=== PATIENT | female | born 1965 | race Caucasian/White ===

== ENCOUNTER 2024-09-27 09:13 | Observation (INO) ==
--- NOTE | 2024-09-27 09:51 | Emergency Department Note ---
HPI - Nausea/Vomiting/Diarrhea General Chief complaint: Abdominal Pain Stated complaint: General Illness Time Seen by Provider: 09/27/24 09:17 Source: patient and EMS Mode of arrival: ambulance Limitations: no limitations History of Present Illness HPI Narrative: 59-year-old female presents to ER with complaint of 4-day onset of diarrhea with abdominal pain, patient reports that she believes she ate something bad on Thursday and has had progressive diarrhea ever since and has continued to have it up to today. Patient has had another bowel movement after arrival in ER. MD elicited complaint: Reports diarrhea and abdominal pain Pertinent past history: Reports other (Hypertension, chronic back pain, rheumatoid arthritis) Onset (ago): day(s) (4) Description of diarrhea: Reports watery Associated nausea: Yes Associated abdominal pain: Yes Location of pain: Reports diffuse Radiation: Reports does not radiate Pain consistency: Reports constant Severity: moderate Quality: Reports cramping and aching Exacerbating factors: Reports eating, bowel movement, movement and exertion Relieving factors: Reports rest Context: Reports possible food poisoning Associated symptoms: Reports myalgias, loss of appetite, nausea/vomiting, weakness, fecal incontinence, anxiety and fatigue Treatment prior to arrival: Reports none Related Data Allergies Allergy/AdvReac Type Severity Reaction Status Date / Time No Known Drug Allergies Allergy Verified 09/27/24 09:21 Review of Systems Status of ROS 10 or more systems reviewed and unremark able except as noted in history and below Constitutional Reports: fatigue Gastrointestinal Reports: abdominal pain, nausea and diarrhea Musculoskeletal Reports: back pain Psychiatric Reports: anxiety Endocrine Reports: fatigue PFSH PFS Medical History (Updated 09/27/24 @ 09:35 by Diane Gamez RN) Hypertension Back pain Rheumatoid arthritis Surgical History (Updated 09/27/24 @ 09:35 by Diane Gamez RN) History of shoulder surgery History of tubal ligation Social History Smoking status: current every day smoker Within the past year, how often did you have a drink containing alcohol: monthly or less Non-prescribed substance use: denies use Feel stressed/tense/nervous/anxious/difficulty sleeping: rather much Life stressors: other (none) Life stressor details: Current medical condition Due to disability, difficulty making decisions: No Exam Constitutional: normal general appearance, distress noted (moderate), abnormal body habitus (underweight), no limitations and alert Vital Signs - 24 hr 09/27/24 09:13 09/27/24 10:00 Temperature 97.1 F L Pulse Rate 92 H 82 Respiratory Rate 20 20 Blood Pressure 143/105 141/93 Pulse Oximetry 98 98 Oxygen Delivery Me thod Room Air Room Air HENMT: normocephalic, head/scalp atraumatic, hearing grossly normal bilaterally, external ears normal, external nose normal, oral mucous membranes normal, oropharynx normal, dentition normal and gingiva normal Eyes: PERRL, EOMs intact bilaterally, conjunctivae normal, no scleral icterus, no papilledema, normal visual hernandez by confrontation, alignment normal, periorbital findings normal and no nystagmus Neck/C-Spine: visual inspection normal, trachea midline, cervical spine nontender, cervical full ROM noted, supple, no meningeal signs and thyroid normal Lymph: no lymphadenopathy noted and no lymphedema noted Chest: inspection of chest normal, inspection of breast(s) abnormal (deferred) and palpation of breast(s) abnormal (deferred) Respiratory: breath sounds equal bilaterally, normal respiratory effort, clear to auscultation bilaterally, no wheezes, no rales, no retractions and no use of accessory muscles Cardiovascular: normal heart rate noted, regular rhythm noted, no murmur, no JVD, peripheral pulses 2+ throughout and no additional abnormal heart sounds Gastrointestinal: abdomen normal to inspection, abdomen soft to palpation, t darian to palpation (diffuse abdominal pain) (moderate), nondistended, normoactive bowel sounds, no hepatosplenomegaly, no masses, no pulsatile mass, no ascites, no hernia and rectal exam abnormal (deferred) Patient has increased pain on palpation of the abdomen in the right lower quadrant and left lower quadrants but reports diffuse pain across the abdomen. Genitourinary: no CVA tenderness, bladder normal to palpation, vaginal abnormality noted (deferred) and cervical abnormality noted (deferred) Back/Pelvis: spine normal to inspection Extremities: normal to inspection, normal to palpation, no tenderness, full ROM, no joint enlargement and no deformity Neurology: mold clamper II-XII intact, no movement abnormality noted, no focal motor deficit noted, no sensory deficits noted, gait normal, speech normal, coordination normal, no pronator drift noted, no fasciculations noted and GCS normal Psychiatry: Mental Status Exam documented within this Exam's Psych section mental status grossly normal, oriented x3, thought process normal, cooperative, affect normal, psychomotor activity normal and memory normal Feel stressed/tense/nervous/anxious/difficulty sleeping: rather much Life stressors: other (none) Life stressor details: Current medical condition Due to disability, difficulty making decisions: No Skin: skin color normal, no rash, no lesions, no ecchymosis noted, no wounds, no lacerations, skin turgor normal, no jaundice, no petechiae, no mottling, nails normal and no alopecia Course Course Hospital Course: 59-year-old female that presented to ER with complaint of 4-day onset of diarrhea with nausea with the absence of vomiting has been evaluated by physical exam, CBC, CMP, magnesium, urinalysis, stool cultures, ova and parasite study, C. difficile, and CT of the abdomen pelvis with contrast results as noted in charting. Patient CBC reveals polycythemia with a hemoglobin of 16.9, CMP reveals hyponatremia with a sodium of 132, hypokalemia with a potassium of 3.1, dehydration with a BUN of 28, patient's stool studies returned with a positive white blood cell in stools, and CT reveals colitis versus ileus. [facility] after she has received 1500 mL of normal saline with some improvement in her weakness, 4 mg of Zofran IV, and Cipro 500 mg IV infusion. Patient will continue to receive electrolyte replacement, hydration, antibiotic therapy for colitis, antidiarrheals, and ongoing lab work as needed. Patient has been made aware of the treatment plan and agrees with it at this time. Vital Signs Vital signs: Vital Signs Temperature 97.1 F L 09/27/24 09:13 Pulse Rate 92 H 09/27/24 09:13 Respiratory Rate 20 09/27/24 09:13 Blood Pressure 143/105 09/27/24 09:13 Pulse Oximetry 98 09/27/24 09:13 Oxygen Delivery Method Room Air 09/27/24 09:13 Temperature 97.1 F L 09/27/24 09:13 Pulse Rate 82 09/27/24 10:00 Respiratory Rate 09/27/24 10:00 Blood Pressure 141/93 09/27/24 10:00 Pulse Oximetry 98 09/27/24 10:00 Oxygen Delivery Method Room Air 09/27/24 10:00 Discharge Plan Discharge Patient Disposition: Admitted As Observation Condition: Stable Clinical Impression: Colitis, Polycythemia, Hyponatremia, Hypokalemia, Dehydration, Diarrhea in adult patient Time of Disposition: 12:00
[2024-09-27 10:03] LABS: Basophils #(Absolute) Auto 0.0 (0.0-0.1); Basophils%(Percent) Auto 0.3 (0.1-0.85); Eosinophils#(Absolute)Auto 0.0 (0.0-0.2); Eosinophils%(Percent) Auto 0.3 % (0.4-2.8); Granulocytes % - Auto 67.9 % (47.8-71.3); Granulocytes#(Absolute)- Auto 3.0 (2.3-6.0); Hematocrit 49.2 % (35.9-46.7); Mean Corpuscular Volume 91.6 fl (81.0-93.7); Monocytes #(Absolute)- Auto 0.8 (1.1-3.1); Monocytes %(Percent)- Auto 17.6 % (3.6-9.8); Platelet Count 139 K/uL (152-353); White Blood Count 4.4 K/uL (4.3-9.3)
[2024-09-27 10:11] LABS: Carbon Dioxide 27.0 mmol/L (21-32); Glucose 106.0 mg/dL (70-110); Potassium 3.1 mmol/L (3.6-5.2); Sodium 132.0 mmol/L (136-145)
[2024-09-27 10:12] LABS: PH BODY FLUID EXCP BLOOD 6.0 (5 - 9)
[2024-09-27] MEDS: 0.9 % SODIUM CHLORIDE 1000 ML 1,000 ML IV STA (10:15)
[2024-09-27] MEDS ORDERED: 0.9 % SODIUM CHLORIDE 1000 ML 1,000 ML IV ONE (10:15)
[2024-09-27 12:00] LABS: Cannabinoid Screen Urine NEG. (NEGATIVE)
[2024-09-27] MEDS: CIPROFLOXACIN 400 MG/200ML-D5W 400 MG/200 ML PIGGYBACK IV ONE (15:42)
[2024-09-27] MEDS ORDERED: KETOROLAC 30 MG/ML INJ VIAL ONE (15:44)
[2024-09-27] MEDS ORDERED: ONDANSETRON HCL/PF 4 MG/2 ML VIAL INJ PRN (15:47)
[2024-09-27] MEDS ORDERED: PROMETHAZINE HCL 25 MG in 0.9 % SODIUM CHLORIDE 50 ML IV PRN (15:52)
[2024-09-27] MEDS: KETOROLAC 30 MG/ML INJ VIAL IVP ONE (15:53)
[2024-09-27 16:25] VITALS: PULSE 77
[2024-09-27] MEDS: CIPROFLOXACIN 400 MG/200ML-D5W 400 MG/200 ML PIGGYBACK IV SCH (16:31)
[2024-09-27] MEDS ORDERED: ACETAMINOPHEN 500 MG TABLET PO PRN (16:45)
[2024-09-27] MEDS ORDERED: MORPHINE SULFATE 4 MG/ML CARTRIDGE IV PRN (16:45)
[2024-09-27] MEDS: PANTOPRAZOLE SODIUM 40 MG TABLET.DR PO SCH (16:46)
[2024-09-27] MEDS: NICOTINE 21 MG/HR .TD24 TD SCH (16:46)
[2024-09-27] MEDS: 0.9 % SODIUM CHLORIDE 1000 ML 1,000 ML IV SCH (16:47)
[2024-09-27] MEDS: METRONIDAZOLE 500 MG/100ML-NS 500 MG/100 ML PIGGYBACK IV SCH (16:47)
[2024-09-27] MEDS: POTASSIUM CHLORIDE IN WATER 10 MEQ/100 ML PIGGYBACK IV ONE (16:47)
[2024-09-27] MEDS ORDERED: MAGNESIUM, ALUMINUM HYDROXIDE 30 ML ORAL.SUSP PO PRN (16:50)
[2024-09-27 17:00] VITALS: BP 151/77; TEMP 97.4
[2024-09-27 17:03] VITALS: RESP 17
[2024-09-27] MEDS ORDERED: POTASSIUM CHLORIDE IN WATER 10 MEQ/100 ML PIGGYBACK IV ONE ×2 (18:00→19:00)
--- NOTE | 2024-09-27 18:44 | Discharge Summary ---
DS: Providers Provider Date of admission: 09/27/24 16:05 Primary care physician: Daniella Caldwell MD DS: Summary Hospital Course Hospital Course: 59-year-old female that presented to ER with complaint of 4-day onset of diarrhea with nausea with the absence of vomiting has been evaluated by physical exam, CBC, CMP, magnesium, urinalysis, stool cultures, ova and parasite study, C. difficile, and CT of the abdomen pelvis with contrast results as noted in charting. Patient CBC reveals polycythemia with a hemoglobin of 16.9, CMP reveals hyponatremia with a sodium of 132, hypokalemia with a potassium of 3.1, dehydration with a BUN of 28, patient's stool studies returned with a positive white blood cell in stools, and CT reveals colitis versus ileus. [facility] after she has received 1500 mL of normal saline with some improvement in her weakness, 4 mg of Zofran IV, and Cipro 500 mg IV infusion. Patient will continue to receive electrolyte replacement, hydration, antibiotic therapy for colitis, antidiarrheals, and ongoing lab work as needed. Patient has been made aware of the treatment plan and agrees with it at this time. Time Spent with Patient Time attestation: Total time spent providing and/or coordinating discharge services: Exam Constitutional: Vital Signs - 24 hr 09/27/24 09:13 09/27/24 10:00 09/27/24 11:00 Temperature 97.1 F L Pulse Rate 92 H 82 82 Pulse Rate [Left] Respiratory Rate 20 20 20 Blood Pressure 143/105 157/75 141/93 Blood Pressure [Le ft Arm] Pulse Oximetry 98 99 [facility] 09/27/24 12:00 09/27/24 13:00 09/27/24 14:00 Temperature Pulse Rate 84 84 80 Pulse Rate [Left] Respiratory Rate 20 20 20 Blood Pressure 157/88 142/82 136/77 Blood Pressure [Le ft Arm] Pulse Oximetry 99 99 [facility] 09/27/24 15:00 09/27/24 15:47 09/27/24 16:24 Temperature 97.4 F L Pulse Rate 80 77 Pulse Rate [Left] 77 Respiratory Rate 20 17 20 Blood Pressure 132/70 141/78 Blood Pressure [Le ft Arm] 151/77 Pulse Oximetry 99 99 99 Oxygen Delivery Me thod Room Air Room Air 09/27/24 16:29 Temperature 97.4 F L Pulse Rate Pulse Rate [Left] 77 Respiratory Rate 17 Blood Pressure Blood Pressure [Le ft Arm] 151/77 Pulse Oximetry 99 Oxygen Delivery Me thod Room Air DS: Data Data Completed and Pending Labs on day of discharge: Labs from last 24 hours 09/27/24 09:45 WBC 4.4 RBC 5.4 Hgb 16.9 H Hct 49.2 H MCV 91.6 MCH 31.4 MCHC 34.3 RDW 12.8 Plt Count 139 L MPV 9.3 Gran % 67.9 Lymph % (Auto) 13.9 L Story % (Auto) 17.6 H Eos % (Auto) 0.3 L Baso % (Auto) 0.3 Lymph # (Auto) 0.6 L Story # (Auto) 0.8 L Eos # (Auto) 0.0 Baso # (Auto) 0.0 Absolute Gran (auto) 3.0 Sodium 132 L Potassium 3.1 L Chloride 97.0 L Carbon Dioxide 27 Anion Gap 8.0 BUN 28 H Creatinine 1.1 Estimated GFR 57.9 Glucose 106 Calcium 9.0 Magnesium 1.9 Total Bilirubin 0.39 AST 22 ALT 21 L Alkaline Phosphatase 93 Total Protein 7.9 Albumin 3.3 L Urine Color Yellow Urine Appearance Clear Ur Specific [place] 1.005 Urine Protein 1+ Urine Glucose (UA) Normal Urine Ketones Negative Urine Occult Blood Negative Urine Nitrite Negative Urine Bilirubin Negative Urine Urobilinogen Normal Ur Leukocyte Esterase Negative Fluid pH 6.0 Stool for White Cells Positive Urine Opiates Screen Neg. Urine Methadone Screen Neg. Barbiturate Screen Neg. Ur Phencyclidine Scrn Neg. Amphetamines Screen Neg. U Benzodiazepines Scrn Neg. Urine Cocaine Screen Neg. U Marijuana (THC) Screen Neg. C. difficile Screen Negative C. difficile GDH Ag Negative Cryptosporidium/Giardia Negative Stl Cryptosporidium Ag Negative Discharge Plan Discharge Condition: Stable Discharge Medications: No Action celecoxib 200 mg capsule 200 mg PO BID Patient Comments: TAKE ONE CAPSULE BY MOUTH TWICE DAILY gabapentin 600 mg tablet 600 mg PO TID Patient Comments: TAKE ONE TABLET BY MOUTH THREE TIMES DAILY NEEDED lisinopril 20 mg tablet 20 mg PO DAILY Patient Comments: TAKE ONE TABLET BY MOUTH DAILY omeprazole 40 mg capsule,delayed release(DR/EC) 40 mg PO DAILY Patient Comments: TAKE ONE CAPSULE BY MOUTH DAILY Hospital Course: 59-year-old female that presented to ER with complaint of 4-day onset of diarrhea with nausea with the absence of vomiting has been evaluated by physical exam, CBC, CMP, magnesium, urinalysis, stool cultures, ova and parasite study, C. difficile, and CT of the abdomen pelvis with contrast results as noted in charting. Patient CBC reveals polycythemia with a hemoglobin of 16.9, CMP reveals hyponatremia with a sodium of 132, hypokalemia with a potassium of 3.1, dehydration with a BUN of 28, patient's stool studies returned with a positive white blood cell in stools, and CT reveals colitis versus ileus. Patient will be admitted to the [facility] floor after she has received 1500 mL of normal saline with some improvement in her weakness, 4 mg of Zofran IV, and Cipro 500 mg IV infusion. Patient will continue to receive electrolyte replacement, hydration, antibiotic therapy for colitis, antidiarrheals, and ongoing lab work as needed. Patient has been made aware of the treatment plan and agrees with it at this time. Print Language: Vietnamese Follow-Ups: Daniella Caldwell MD [Primary Care Provider]
--- NOTE | 2024-09-27 18:46 | Short Stay Summary ---
H&P: HPI History of Present Illness Chief complaint: General Illness Review of Systems Status of ROS 10 or more systems reviewed and unremark able except as noted in history and below Constitutional Reports: fatigue Gastrointestinal Reports: abdominal pain, nausea and diarrhea Musculoskeletal Reports: back pain Psychiatric Reports: anxiety Endocrine Reports: fatigue PFSH [facility] Medical History (Updated 09/27/24 @ 09:35 by Diane Gamez RN) Hypertension Back pain Rheumatoid arthritis Surgical History (Updated 09/27/24 @ 09:35 by Diane Gamez RN) History of shoulder surgery History of tubal ligation Social History Smoking status: current every day smoker Within the past year, how often did you have a drink containing alcohol: monthly or less Non-prescribed substance use: denies use Highest level of school completed/degree received: decline to answer Feel stressed/tense/nervous/anxious/difficulty sleeping: rather much Life stressors: other (none) Life stressor details: Current medical condition Due to disability, difficulty making decisions: No Meds Home Medications and Allergies Home Medications Medication Instructions Recorded Confirmed Type celecoxib 200 mg capsule 200 mg PO BID 09/27/2409/27 History gabapentin 600 mg tablet 600 mg PO TID 09/27/2409/27 History lisinopril 20 mg tablet 20 mg PO DAILY 09/27/2404/23 History omeprazole 40 mg capsule,delayed 40 mg PO DAILY 09/27/24 History release Allergies Allergy/AdvReac Type Severity Reaction Status Date / Time No Known Drug Allergies Allergy Verified 09/27/24 09:21 Exam Constitutional: Vital Signs - 24 hr 09/27/24 09:13 09/27/24 10:00 09/27/24 11:00 Temperature 97.1 F L Pulse Rate 92 H 82 82 Pulse Rate [Left] Respiratory Rate 20 20 20 Blood Pressure 143/105 157/75 141/93 Blood Pressure [Le ft Arm] Pulse Oximetry 98 99 98 Oxygen Delivery Me thod Room Air Room Air Room Air 09/27/24 12:00 09/27/24 13:00 09/27/24 14:00 Temperature Pulse Rate 84 84 80 Pulse Rate [Left] Respiratory Rate 20 20 20 Blood Pressure 157/88 142/82 136/77 Blood Pressure [Le ft Arm] Pulse Oximetry 99 99 99 Oxygen Delivery Me thod Room Air Room Air Room Air 09/27/24 15:00 09/27/24 15:47 09/27/24 16:24 Temperature 97.4 F L Pulse Rate 80 77 Pulse Rate [Left] 77 Respiratory Rate 20 17 20 Blood Pressure 132/70 141/78 Blood Pressure [Le ft Arm] 151/77 Pulse Oximetry 99 99 99 Oxygen Delivery Me thod Room Air Room Air 09/27/24 16:29 Temperature 97.4 F L Pulse Rate Pulse Rate [Left] 77 Respiratory Rate 17 Blood Pressure Blood Pressure [Le ft Arm] 151/77 Pulse Oximetry 99 Oxygen Delivery Me thod Room Air Results Labs Labs: CBC 09/27/24 Range/Units 09:45 WBC 4.4 (4.3-9.3) K/uL RBC 5.4 (4.00-5.50) M/uL Hgb 16.9 H (12.5-15.8) gm/dL Hct 49.2 H (35.9-46.7) % Plt Count 139 L (152-353) K/uL Gran % 67.9 (47.8-71.3) % Lymph % (Auto) 13.9 L (20.0-43.0) % [place] % (Auto) 17.6 H (3.6-9.8) % Eos % (Auto) 0.3 L (0.4-2.8) % Baso % (Auto) 0.3 (0.1-0.85) Lymph # (Auto) 0.6 L (1.1-3.1) [place] # (Auto) 0.8 L (1.1-3.1) Eos # (Auto) 0.0 (0.0-0.2) Baso # (Auto) 0.0 (0.0-0.1) Absolute Gran (auto) 3.0 (2.3-6.0) CMP 09/27/24 09:45 Sodium 132 L Potassium 3.1 L Chloride 97.0 L Carbon Dioxide 27 BUN 28 H Creatinine 1.1 Glucose 106 Calcium 9.0 Liver Function 09/27/24 Range/Units 09:45 Total Bilirubin 0.39 (0.0-1.0) mg/dL AST 22 (15-37) U/L ALT 21 L (30-65) U/L Alkaline Phosphatase 93 (50-136) U/L Albumin 3.3 L (3.4-5.0) g/dL Urine 09/27/24 09:45 Urine Color Yellow Urine Appearance Clear Ur Specific [place] 1.005 Urine Protein 1+ Urine Glucose (UA) Normal DS: Providers Provider Date of admission: 09/27/24 16:05 Primary care physician: Daniella Caldwell MD DS: Summary Hospital Course Hospital Course: 59-year-old female that presented to ER with complaint of 4-day onset of d iarrhea with nausea with the absence of vomiting has been evaluated by physical exam, CBC, CMP, magnesium, urinalysis, stool cultures, ova and parasite study, C. difficile, and CT of the abdomen pelvis with contrast results as noted in charting. Patient CBC reveals polycythemia with a hemoglobin of 16.9, CMP reveals hyponatremia with a sodium of 132, hypokalemia with a potassium of 3.1, dehydration with a BUN of 28, patient's stool studies returned with a positive white blood cell in stools, and CT reveals colitis versus ileus. Patient will be admitted to the [facility] floor after she has received 1500 mL of normal saline with some improvement in her weakness, 4 mg of Zofran IV, and Cipro 500 mg IV infusion. Patient will continue to receive electrolyte replacement, hydration, antibiotic therapy for colitis, antidiarrheals, and ongoing lab work as needed. Patient has been made aware of the treatment plan and agrees with it at this time. Time Spent with Patient Time attestation: Total time spent providing and/or coordinating discharge services: Discharge Plan Discharge Disposition: Left Without Being Seen
== END 2024-09-27 18:00 | disposition left against medical advice (07) ==
LOC: ED 09:13 → MS 09:13
PROVIDERS: ADMIT Nurse Practitioner Family; ATTEND Nurse Practitioner Family